=== PATIENT | female | born 1985 | race Two or more races ===

== ENCOUNTER → 2018-10-09 | Outpatient (REF) | payer OTHER ==
[2018-10-09 17:30] LABS: APPEARANCE, URINE HAZY (CLEAR); BACTERIA, URINE AUTO 1+ (NEGATIVE); BILIRUBIN, URINE AUTO NEGATIVE (NEGATIVE); BLOOD, URINE BLOOD 2+ (NEGATIVE); COLOR, URINE STRAW (YELLOW); GLUCOSE, URINE (UA) AUTO NEGATIVE (NEGATIVE); KETONE, URINE AUTO NEGATIVE (NEGATIVE); LEUKOCYTE ESTERASE, URINE AUTO 3+ (NEGATIVE); NITRITE, URINE AUTO NEGATIVE (NEGATIVE); PROTEIN, URINE AUTO NEGATIVE (NEGATIVE); RBC, URINE AUTO 4 /HPF (0-3); SPECIFIC GRAVITY URINE AUTO 1.004 (1.002-1.035); SQUAMOUS EPITHELIAL CELL UR AU 1 /HPF (0-6); UROBILINOGEN, URINE AUTO 0.2 mg/dL (0.0-2.0); WBC, URINE AUTO 88 /HPF (0-3)
== END ==
LOC: M LAB REF 17:03
PROVIDERS: ATTEND Physician Assistant Medical
DX: N39.0 Urinary tract infection, site not specified (principal)

== ENCOUNTER 2018-12-25 16:40 | Emergency (ER) | payer OTHER ==
[~2018-12-25] VITALS: Ht 157.5 cm; Wt 87.3 kg
[2018-12-25] MEDS ORDERED: LIDOCAINE 1% MDV 20ML VIAL IM ONE (17:15)
[2018-12-25] MEDS ORDERED: ADACEL/BOOSTRIX VACCINE (DIPHTH/PERTUSS/ACELL/TETANUS)0.5ML SYR (90715) IM ONE (17:15)
[2018-12-25 18:18] VITALS: BP 116/62
== END 2018-12-25 18:36 | disposition home or self-care (01) ==
LOC: M ED 16:40
DX: S61.411A Laceration without foreign body of right hand, initial encounter (principal); W25.XXXA Contact with sharp glass, initial encounter; Y92.090 Kitchen in other non-institutional residence as the place of occurrence of the external cause; Y93.G1 Activity, food preparation and clean up; Y99.8 Other external cause status; Z23 Encounter for immunization

== ENCOUNTER 2022-10-19 14:48 | Emergency (ER) | payer OTHER ==
[~2022-10-19] VITALS: Ht 157.5 cm; Wt 77.6 kg
[2022-10-19 14:49] VITALS: BP 123/76; TEMP 97.8; O2SAT 98
[2022-10-19] MEDS ORDERED: IBUPROFEN 600MG TAB PO ONE (19:00)
[2022-10-19 19:16] LABS: URINE PREG TEST NEGATIVE (NEGATIVE)
[2022-10-19] MEDS ORDERED: METH-1164 PO (19:25)
[2022-10-19] MEDS ORDERED: IBUP-1022 PO (19:25)
== END 2022-10-19 19:32 | disposition home or self-care (01) ==
LOC: M ED 14:48
DX: M54.50 Low back pain, unspecified (principal)